=== PATIENT | male | born 1945 | race Caucasian/White ===

== ENCOUNTER 2025-02-22 16:52 | Emergency (ER) | payer BC, MEDICARE ==
[2025-02-22] MEDS ORDERED: Tetracaine 0.5% PF 4 ML BOT ONE (17:08)
[2025-02-22] MEDS ORDERED: Fluorescein Opthalmic Strip ONE (17:08)
== END 2025-02-22 17:46 | disposition home or self-care (01) ==
LOC: BURERS 16:52
DX: H00.021 Hordeolum internum right upper eyelid (principal); I10 Essential (primary) hypertension; Z79.899 Other long term (current) drug therapy
CPT/HCPCS: 99283